=== PATIENT | male | born 1950 | race Caucasian/White ===

== ENCOUNTER 2025-04-06 10:34 | Outpatient (CLI) | payer MEDICARE, OTHER, SELFPAY ==
--- NOTE | 2025-04-06 12:04 | P.ANES_ITS ---
Anesthesia Charges Start Date/Time Anesthesia Start Date: 04/06/25 Anesthesia Start Time: 12:19 Stop Date/Time Anesthesia Stop Date: 04/06/25 Anesthesia Stop Time: 12:35 Summary Extremes of Age - Over 70 or under 1: MDA Coding CPT Codes CPT Codes: ANES UPR GI NDSC PX NOS - 05222 ([id number]) P3 - PATIENT W/SEVERE SYS DISEASE, QK - SIDING COREBOARD INSPECTOR 2-4 CNCRNT ANES PROC, QX - LIBRARY MANAGER SVC W/ MD MED DIRECTION Additional Codes: Summary - Extremes of Age - Over 70 or under 1: MDA ([id number])
--- NOTE | 2025-04-06 12:04 | W.ANESCHARGE ---
Anesthesia Charges Start Date/Time Anesthesia Start Date: 04/06/25 Anesthesia Start Time: 12:19 Stop Date/Time Anesthesia Stop Date: 04/06/25 Anesthesia Stop Time: 12:35 Summary Extremes of Age - Over 70 or under 1: MDA Coding CPT Codes CPT Codes: ANES UPR GI NDSC PX NOS - 54705 ([id number]) P3 - PATIENT W/SEVERE SYS DISEASE, QK - PROFESSOR OF HISTORY 2-4 CNCRNT ANES PROC, QX - TERRAZZO WORKER SVC W/ MD MED DIRECTION Additional Codes: Summary - Extremes of Age - Over 70 or under 1: MDA ([id number])
--- NOTE | 2025-04-06 12:37 | P.ANES_ITS ---
Anesthesia Charges Start Date/Time Anesthesia Start Date: 04/06/25 Anesthesia Start Time: 12:19 Stop Date/Time Anesthesia Stop Date: 04/06/25 Anesthesia Stop Time: 12:35 Summary Extremes of Age - Over 70 or under 1: BRAND LEADER Coding CPT Codes CPT Codes: ANES UPR GI NDSC PX NOS - 90287 ([id number]) P3 - PATIENT W/SEVERE SYS DISEASE, QX - BRAND LEADER SVC W/ MD MED DIRECTION, QK - SOFTWARE PROGRAMMER 2-4 CNCRNT ANES PROC Additional Codes: Summary - Extremes of Age - Over 70 or under 1: BRAND LEADER ([id number])
--- NOTE | 2025-04-06 12:37 | W.ANESCHARGE ---
Anesthesia Charges Start Date/Time Anesthesia Start Date: 04/06/25 Anesthesia Start Time: 12:19 Stop Date/Time Anesthesia Stop Date: 04/06/25 Anesthesia Stop Time: 12:35 Summary Extremes of Age - Over 70 or under 1: LEGAL DOCUMENT ASSISTANT Coding CPT Codes CPT Codes: ANES UPR GI NDSC PX NOS - 79921 ([id number]) P3 - PATIENT W/SEVERE SYS DISEASE, QX - LEGAL DOCUMENT ASSISTANT SVC W/ MD MED DIRECTION, QK - PAYMENT PROCESSOR 2-4 CNCRNT ANES PROC Additional Codes: Summary - Extremes of Age - Over 70 or under 1: LEGAL DOCUMENT ASSISTANT ([id number])
== END 2025-04-06 10:35 | disposition home or self-care (01) ==
PROVIDERS: PCP Family Medicine; Visit Provider Internal Medicine Gastroenterology
DX: D50.9 Iron deficiency anemia, unspecified (principal); Z86.0100 Personal history of colon polyps, unspecified; K22.89 Other specified disease of esophagus
CPT/HCPCS: 00731; 43239; 88305; 99100; J2704; J3010